=== PATIENT | male | born 1965 | race Caucasian/White ===

== ENCOUNTER → 2021-07-13 | Outpatient (CLI) | payer MEDICARE ==
[~2021-07-13] MED LIST: ACTOS30 MG PO; CLARITIN10 MG PO; CYCLOBENZAPRINE5 MG PO; GABAPENTIN800 MG PO; GLUCOPHAGE1000 MG PO; IBU600 MG PO; LISINOPRIL-HCT1 EAC1 PO; OMEPRAZOLE20 MG PO; ONDANSETRON HCL8 MG PO; PAXIL40 MG PO; SYNTHROID25 MCG PO; TENORMIN 25 MG25 MG PO; VALIUM 5 MG TAB5 MG PO; VICTOZA 3-0.6 MG/0.1 SQ; VITAMIN D250000 UNIT PO; ZOCOR40 MG PO; ZYLOPRIM 300 M300 MG PO
== END ==
LOC: SLEEP 14:49
DX: G47.33 Obstructive sleep apnea (adult) (pediatric) (principal); E66.01 Morbid (severe) obesity due to excess calories; Z68.43 Body mass index [BMI] 50.0-59.9, adult
CPT/HCPCS: 95811

== ENCOUNTER → 2022-05-27 | Outpatient (CLI) | payer MEDICARE | LOC: RAD 07:31 | DX: M54.59 Other low back pain (principal); M47.816 Spondylosis without myelopathy or radiculopathy, lumbar region | CPT/HCPCS: 72100 ==